=== PATIENT | female | born 1970 | race Caucasian/White ===

== ENCOUNTER → 2020-06-13 | Outpatient (CLI) | payer BC ==
--- NOTE | 2020-06-13 11:37 | CT ---
EXAMINATION TYPE: CT soft tissue neck w con DATE OF EXAM: 06/13/2020 COMPARISON: None HISTORY: 50-year-old female Left sided neck discomfort and sensation of throat closing per patient TECHNIQUE: Contiguous axial scanning of the soft tissues of the neck performed with IV Contrast, maia ent injected with 100 mL of Isovue 300. Coronal and sagittal reconstructions performed. CT DLP: 1095.6 mGycm Automated exposure control for dose reduction was used. FINDINGS: Visualized intracranial structures show a partially empty sella. Orbits and globes, paranasal sinuses , and mastoid air cells appear clear. Leftward nasal septal deviation. Nasopharynx is clear. Mild bilateral palatine tonsillar hypertrophy. Oropharynx otherwise appears clear. Epiglottis and prevertebral soft tissues appear satisfactory. Glottic and subglottic structures as well as the tracheal column and visualized upper lungs appear cl ear. The thyroid, submandibular, and bilateral parotid glands appear satisfactory. Scattered nonenlarged cervical lymph nodes are present largest in the right upper neck measuring up t o 7 mm, coronal image 39. Bones: Moderate disc/end plate degenerative change C5-C7 levels with reversal of the normal cervical lordosis. IMPRESSION: BILATERAL PALATINE TONSILLAR HYPERTROPHY WHICH CAN BE CORRELATED WITH DIRECT INSPECTION IF INDICATED. OTHERWISE, NO SPECIFIC ABNORMALITY SEEN.
== END | disposition home or self-care (01) ==
LOC: RADCTMAIN 10:28
PROVIDERS: ATTEND Otolaryngology Facial Plastic Surgery
DX: J35.1 Hypertrophy of tonsils (principal); R49.0 Dysphonia
CPT/HCPCS: 70491; Q9967

== ENCOUNTER 2022-05-13 07:31 | Day surgery (SDC) | payer BC ==
[~2022-05-13 07:31] MED LIST: LACTATED RINGERS 1,000 ML IV SCH; LIDOCAINE 1% (10MG/ML) FOR IV START INTRADERMA PRN
[2022-05-13 07:56] VITALS: TEMP 97.2
[2022-05-13] MEDS ORDERED: LIDOCAINE 2% INJ 20 MG/ML (2 ML VIAL) ONE (08:29)
[2022-05-13] MEDS ORDERED: PROPOFOL 10 MG/ML 20 ML VIAL IV ONE (08:29)
--- NOTE | 2022-05-13 08:46 | P.PCN ---
Date of Procedure: 05/13/22 Procedure(s) Performed: BRIEF HISTORY: Patient is a 52-year-old pleasant white female scheduled for an elective colonoscopy as a part of evaluation of change in bowel habits for the last 6 months duration. His been having alternating diarrhea and constipation with intermittent lower abdominal pain. Denies any rectal bleeding. PROCEDURE PERFORMED: Colonoscopy with random biopsy. PREOPERATIVE DIAGNOSIS: Change in bowel habits. IV sedation per Anesthesia. PROCEDURE: After informed consent was obtained, the patient, was brought into the endoscopy unit. IV sedation was administered by Anesthesia under continuous monitoring. Digital rectal examination was normal. Initially the Olympus CF-160 flexible video colonoscope was then inserted in the rectum, gradually advanced into the cecum without any difficulty. Careful examination was performed as the scope was gradually being withdrawn. Ileocecal valve and the appendiceal orifice were visualized and appeared normal. Prep was excellent. Mucosa of the cecum, ascending colon, transverse colon, descending colon, sigmoid colon, and rectum appeared normal. Random biopsies were done from ascending and descending colon to rule out microscopic/collagenous colitis. Retroflexion was performed in the rectum and no lesions were seen. The patient tolerated the procedure well. IMPRESSION: Normal-appearing colon from rectum to cecum with no evidence of colitis or colorectal neoplasia . RECOMMENDATIONS: Findings of this examination were discussed with the patient as well as a family. She was advised to follow with the biopsy results. Continue with a high-fiber diet and fiber supplement a regular basis. Recommend repeat screening colonoscopy in 10 years..
[2022-05-13 09:06] VITALS: BP 120/78; PULSE 72; RESP 20
== END 2022-05-13 09:40 | disposition home or self-care (01) ==
LOC: ORWHC2ENDO 07:31
PROVIDERS: ATTEND Internal Medicine Gastroenterology
DX: R19.4 Change in bowel habit (principal); G47.33 Obstructive sleep apnea (adult) (pediatric); K21.9 Gastro-esophageal reflux disease without esophagitis; E66.01 Morbid (severe) obesity due to excess calories; Z68.41 Body mass index [BMI] 40.0-44.9, adult; Z99.89 Dependence on other enabling machines and devices; Z79.899 Other long term (current) drug therapy; Z91.040 Latex allergy status
CPT/HCPCS: 88305; 45380; J2704; J2001

== ENCOUNTER 2023-07-28 07:09 | Day surgery (SDC) | payer BC ==
[~2023-07-28 07:09] MED LIST changes: -LIDOCAINE 1% (10MG/ML) FOR IV START INTRADERMA PRN; +ONDANSETRON 4 MG/2 ML VIAL IVP PRN
[2023-07-28] MEDS: LACTATED RINGERS 1,000 ML IV ONE (07:28)
[2023-07-28] MEDS: LIDOCAINE 1% (10MG/ML) FOR IV START INTRADERMA PRN (07:40)
[2023-07-28 08:03] VITALS: TEMP 97
[2023-07-28] MEDS ORDERED: PROPOFOL 10 MG/ML 20 ML VIAL IV ONE (08:23)
--- NOTE | 2023-07-28 08:42 | P.PCN ---
Date of Procedure: 07/28/23 Procedure(s) Performed: BRIEF HISTORY: Patient is a a 53-year-old pleasant white female scheduled for an elective colonoscopy as a part of evaluation of recurrent perianal abscesses and recently diagnosed perianal fistula. She had an MRI pelvis done 2 weeks ago that revealed a complex right-sided fistula arising from the right perianal skin extending into the intersphincteric plane suspicious for Crohn's disease. She is hence scheduled for colonoscopy to evaluate further. She also has intermittent diarrhea. PROCEDURE PERFORMED: Colonoscopy with biopsy. PREOPERATIVE DIAGNOSIS: Perianal fistula rule out Crohn's disease. IV sedation per Anesthesia. PROCEDURE: After informed consent was obtained, the patient, was brought into the endoscopy unit. IV sedation was administered by Anesthesia under continuous monitoring. Digital rectal examination revealed mild duration of the right perianal area. No obvious fistula identified.. Initially the Olympus CF-160 flexible video colonoscope was then inserted in the rectum, gradually advanced into the cecum without any difficulty. Careful examination was performed as the scope was gradually being withdrawn. Ileocecal valve and the appendiceal orifice were visualized and appeared normal. Terminal ileum was intubated and 20 cm visualized and appeared normal. Biopsies were done from this area. Prep was excellent. Mucosa of the cecum, ascending colon, transverse colon, descending colon, sigmoid colon, and rectum appeared normal. Random biopsies were done of the colon. Retroflexion was performed in the rectum and no lesions were seen. The patient tolerated the procedure well. IMPRESSION: Normal-appearing colon from rectum to cecum with no evidence of colitis or colorectal neoplasia Normal-appearing terminal ileum Mild duration of the right perianal area. RECOMMENDATIONS: Findings of this examination were discussed with the patient as well as a family. She was advised to follow with the biopsy results and she'll be seen in office in 2 weeks..
[2023-07-28 09:17] VITALS: BP 138/87; PULSE 84; RESP 20
== END 2023-07-28 09:20 | disposition home or self-care (01) ==
LOC: ORWHC2ENDO 07:09
PROVIDERS: ATTEND Internal Medicine Gastroenterology
DX: K60.3 Anal fistula (principal); G47.33 Obstructive sleep apnea (adult) (pediatric); K21.9 Gastro-esophageal reflux disease without esophagitis; F10.90 Alcohol use, unspecified, uncomplicated; Z87.891 Personal history of nicotine dependence; Z79.899 Other long term (current) drug therapy
CPT/HCPCS: 88305; 45380; J2704